=== PATIENT | female | born 1985 | race Caucasian/White ===

== ENCOUNTER 2018-04-18 14:08 | Emergency (ER) | payer MEDICAID ==
[~2018-04-18] VITALS: Ht 167.6 cm; Wt 81.3 kg
[~2018-04-18 14:08] MED LIST: ALBU6.7H INH; ALBU8.5H8 IH; DIPH-186 PO; FAMO20TA44 PO; HYDR-569 PO; METH4TAB PO; NO HOME MEDS; OMEP20CA10 PO; ONDA4TAB12 PO; ONDA8TAB13 PO; SUCR1ORA2 PO
[2018-04-18 15:06] VITALS: BP 136/88
[2018-04-18] MEDS ORDERED: IBUP-1984 PO (16:01)
[2018-04-18] MEDS ORDERED: HYDR-565 PO (16:01)
[2018-04-18] MEDS ORDERED: ORPH100T2 PO (16:01)
== END 2018-04-18 16:18 | disposition home or self-care (01) ==
LOC: ER 14:08
DX: M54.5 Low back pain (principal); F12.90 Cannabis use, unspecified, uncomplicated; Z79.899 Other long term (current) drug therapy
CPT/HCPCS: 99283

== ENCOUNTER 2023-01-14 07:03 | Inpatient (IN) | payer MEDICAID ==
[2023-01-11 11:43] LABS: CLARITY,URINE CLEAR (Clear); COLOR,URINE YELLOW (Yellow); GLUCOSE, URINE NEGATIVE (Neg); KETONES,URINE NEGATIVE (Neg); LEUKOCYTE ESTERASE ,URINE NEGATIVE (Neg); NITRITES, URINE NEGATIVE (Neg); OCCULT BLOOD,URINE NEGATIVE (Neg); PH,URINE 7.5 (4.8-8.0); PROTEIN,URINE NEGATIVE (Neg); UA COLLECTION TYPE CLN CATCH MIDSTREAM; UROBILINOGEN,URINE 0.2 E.U/dL (0.2-1.0)
[2023-01-11 11:44] LABS: PRE OP PROTIME 10.7 SECONDS (9.0-12.0)
[2023-01-11 11:48] LABS: ALBUMIN 4.1 G/DL (3.4-5.0); ALBUMIN/GLOBULIN RATIO 1.2 (1.1-1.5); ALKALINE PHOSPHATASE 58 IU/L (46-116); BLOOD UREA NITROGEN 5 MG/DL (7-18); BUN/CREATININE RATIO 7.1 (6.6-38.0); CHLORIDE 106 MMOL/L (99-107); PRE OP ALT 23 U/L (30-65); PRE OP ANION GAP 6 (8-16); PRE OP AST 16 U/L (10-37); PRE OP BILIRUB, TOTAL 0.2 MG/DL (0.0-1.0); PRE OP GLUCOSE 112 MG/DL (70-104); PRE OP POTASSIUM 3.8 MMOL/L (3.4-5.1); PRE OP SODIUM 140 MMOL/L (135-145); TOTAL CARBON DIOXIDE 28.3 MMOL/L (24-32); TOTAL PROTEIN 7.4 G/DL (6.4-8.2); eGFR > 90 ML/MIN
[2023-01-11 12:42] LABS: BASOPHILS % (AUTO) 0.9 % (0-1); EOSINOPHILS # (AUTO) 0.1 X10'3 (0-0.9); EOSINOPHILS % (AUTO) 2.2 % (0-6); LYMPHOCYTES # (AUTO) 1.2 X10'3 (1.1-4.8); LYMPHOCYTES % (AUTO) 28.6 % (21-51); MEAN CORPUSCULAR HEMOGLOBIN 30.8 PG (27.0-31.0); MEAN CORPUSCULAR HGB CONC 32.7 g/dL (33.0-36.5); MEAN CORPUSCULAR VOLUME 94.2 FL (78-98); MEAN PLATELET VOLUME 8.6 FL (7.4-10.4); MONOCYTES # (AUTO) 0.3 X10'3 (0-0.9); MONOCYTES % (AUTO) 6.9 % (2-12); NEUTROPHILS # (AUTO) 2.7 X10'3 (1.8-7.7); NEUTROPHILS % (AUTO) 61.4 % (42-75); PRE OP HEMATOCRIT 43.2 % (35.0-45.0); PRE OP HEMOGLOBIN 14.1 g/dL (12.0-16.0); PRE OP PLATELET COUNT 264 X10'3 (140-440); RED BLOOD COUNT 4.58 X10'6 (4.20-5.60); RED CELL DISTRIBUTION WIDTH 13.5 % (11.5-14.5)
[~2023-01-14] VITALS: Ht 167.6 cm; Wt 81.5 kg
[2023-01-14] VITALS (24 sets, daily range): BP systolic 89–152; BP diastolic 49–88
[~2023-01-14 07:03] MED LIST changes: -ALBU6.7H INH; -ALBU8.5H8 IH; -DIPH-186 PO; -FAMO20TA44 PO; -HYDR-569 PO; +IBUP-1986 PO; -METH4TAB PO; -NO HOME MEDS; -OMEP20CA10 PO; -ONDA4TAB12 PO; -ONDA8TAB13 PO; -SUCR1ORA2 PO; +cefazolin 2gm/D5W 100mL 100 ML IV ONE; +famotidine 20mg tablet PO ONE; +ringers solution, lacted 1,000 ML IV SCH
[2023-01-14] MEDS ORDERED: midazolam 1 mg/ML 2ml injection ONE (12:32)
[2023-01-14] MEDS ORDERED: BUPIVAcaine/PF 2.5 mg/ml (0.25%) 30ml vial ONE (12:33)
[2023-01-14] MEDS ORDERED: sevoflurane 250ml liquid IH ONE (12:40)
[2023-01-14] MEDS ORDERED: meperidine/PF 25mg/ml syringe IV PRN ×3 (12:40)
[2023-01-14] MEDS ORDERED: morphine 2 MG/ML inj. syringe IV PRN ×2 (12:40→14:55)
[2023-01-14] MEDS ORDERED: labetalol 20mg/4ml (5mg/ml) syringe IV PRN (12:40)
[2023-01-14] MEDS ORDERED: ringers solution, lacted 1,000 ML IV SCH (12:40)
[2023-01-14] MEDS ORDERED: hydrALAZINE 20mg/ml inj. IV PRN (12:40)
[2023-01-14] MEDS ORDERED: dexamethasone sod phosphate 4mg/ml inj. ONE (12:40)
[2023-01-14] MEDS ORDERED: acetaminophen 1,000mg/100ml IV 100 ML IV PRN (12:40)
[2023-01-14] MEDS ORDERED: proCHLORperazine 10 MG/2 ml inj IV PRN (12:40)
[2023-01-14] MEDS ORDERED: ondansetron/PF 4mg/2ml inj IV PRN (12:40)
[2023-01-14] MEDS ORDERED: fentaNYL /PF 50mcg/ml 5ml ampule ONE (14:08)
[2023-01-14] MEDS ORDERED: cloNIDine hcl/PF 100mcg/ml inj ONE (14:41)
[2023-01-14] MEDS ORDERED: propofol inj 20 ML IV ONE (14:46)
[2023-01-14] MEDS ORDERED: 0.9 % SODIUM CHLORIDE 10 ML VIAL ONE (14:46)
[2023-01-14] MEDS ORDERED: ondansetron/PF 4mg/2ml inj ONE (14:46)
[2023-01-14] MEDS ORDERED: ePHEDrine 50MG/ML INJ. ONE (14:46)
[2023-01-14] MEDS ORDERED: LIDOcaine 2% (20mg/ml) 5ml vial ONE (14:46)
[2023-01-14] MEDS ORDERED: rocuronium 10mg/ml inj IV ONE ×2 (14:46)
[2023-01-14] MEDS ORDERED: LIDOcaine 1% (10mg/ml) 2ml vial ONE (14:46)
[2023-01-14] MEDS ORDERED: glycopyrrolate 0.2mg/ml inj ONE (14:55)
[2023-01-14] MEDS ORDERED: albuterol 2.5 MG/3 ML nebule NEB PRN (14:55)
[2023-01-14] MEDS ORDERED: neostigmine methylsulfate 1 MG/ML 10ml vial ONE (14:55)
[2023-01-14] MEDS ORDERED: metoclopramide 5 mg/ml inj IV PRN (14:55)
[2023-01-14] MEDS ORDERED: morphine 4 MG/ML inj SYRINge IV PRN (14:55)
[2023-01-14] MEDS ORDERED: sugammadex 200mg/2ml injection IV ONE (14:58)
[2023-01-14] MEDS: albuterol 2.5 MG/3 ML nebule NEB SCH ×3 (15:00→23:26)
--- NOTE | 2023-01-14 15:09 | NUR ---
Received from OR via HOSPITAL BED, accompanied by Anesthesiologist and report given by NHUNG Anesthesiologist. PATIENT WAKING UP, SEVERE LEFT LATERAL CHEST PAIN-MEDICATED, V/S WNL, 20G TO LEFT HAND, ART LINE LEFT RADIAL C/D/I, SCD ON, NEURO CHECKS WNL , PERRLA EYES, EQUAL STRENGTHS BUE BLE , TONGUE MIDLINE, CHEST TUBE ATRIUM CONNECTED TO 20 MMHG SUCTION ON LEFT LATERAL CHEST C/D/I NO OUTPUT AT THIS TIME. STEPHEN CATHETER DRAINING CLEAR YELLOW URINE. Addendum: 01/14/23 at 1608 by Bright Fitzgerald RN Amended: Links added.
[2023-01-14] MEDS: morphine 4 MG/ML inj SYRINge IV PRN ×2 (15:13→15:27)
[2023-01-14] MEDS ORDERED: ketorolac trometh. 30mg/ml inj. IV ONE (15:15)
[2023-01-14] MEDS ORDERED: HYDROmorph/NS 0.2 mg/ml PCA 100 ML IV SCH (15:20)
[2023-01-14] MEDS ORDERED: naloxone 0.4 mg/ml inj IV PRN (15:20)
[2023-01-14 15:26] LABS: ABG BASE EXCESS -4.3 mmol/L (-2.0-2.0); ABG HCO3 18.2 mmol/L (22.0-26.0); ABG PCO2 (T) 27.1 mmHg (32.0-45.0); FCOHb 0.1 % (0.0-3.9); FMetHb 0.3 % (0.0-1.5); FO2Hb 97.6 % (94-97); TOTAL HEMOGLOBIN 14.3 G/dl (12.0-16.0)
[2023-01-14] MEDS: HYDROmorph/NS 0.2 mg/ml PCA 100 ML IV SCH ×4 (15:48→23:00)
--- NOTE | 2023-01-14 17:58 | NUR ---
Patient in room PAS IN 900. I have received report from Bright GILES and had the opportunity to ask questions and assume patient care.
--- NOTE | 2023-01-14 18:19 | NUR ---
PATIENT HAS MET ALL CRITERIA FOR TRANSFER TO THE SURGICAL FLOOR. VSS. DRESSINGS INTACT. BED LOW, CALL LIGHT PRESENT AND 2 RAILS UP. RN PRESENT TO ACCEPT CARE OF PATIENT AND REPORT HAS BEEN CALLED. ALL QUESTIONS ANSWERED TO ACCEPTING RN. Addendum: 01/14/23 at 1825 by Bright Fitzgerald RN Amended: Links added.
--- NOTE | 2023-01-14 18:20 | NUR ---
Patient arrived to floor via hospital bed assisted by Bright GILES. VS obtained and stable, patient AOx4 orientation provided to floor and call light, patient verbalized understanding. Family at bedside. Patient c/o nausea, PRN administered.
--- NOTE | 2023-01-14 18:40 | NUR ---
Problems reprioritized. Patient report given, questions answered & plan of care reviewed with Sarahi GILES.
[2023-01-14] MEDS: ketorolac tromethamine 15mg/ml inj. IV SCH (21:13)
[2023-01-14] MEDS: gabapentin 300mg capsule PO SCH (21:13)
[2023-01-14] MEDS: potassium Cl 20mEq in D5-NS 1,000 ML IV SCH (22:09)
[2023-01-15] MEDS: HYDROmorph/NS 0.2 mg/ml PCA 100 ML IV SCH ×5 (01:00→09:00)
[2023-01-15] MEDS: ketorolac tromethamine 15mg/ml inj. IV SCH ×3 (02:43→14:19)
[2023-01-15] MEDS: albuterol 2.5 MG/3 ML nebule NEB SCH ×5 (03:23→20:20)
[2023-01-15] MEDS: ceFAZolin inj. 1,000 MG in dextrose 5%-water 50ml 50 ML IV SCH ×4 (03:23→10:19)
[2023-01-15 04:00] VITALS: BP 96/53
[2023-01-15] MEDS: potassium Cl 20mEq in D5-NS 1,000 ML IV SCH ×2 (04:13→10:24)
[2023-01-15 05:30] VITALS: BP 95/53
[2023-01-15] MEDS: ondansetron/PF 4mg/2ml inj IV PRN ×2 (06:50→14:56)
--- NOTE | 2023-01-15 07:00 | NUR ---
Patient in room [facility] 358. I have received report from TISHA Braxton and had the opportunity to ask questions and assume patient care.
[2023-01-15 08:14] LABS: ALANINE AMINOTRANSFERASE 19 U/L (12-78); ALBUMIN 3.3 G/DL (3.4-5.0); ALBUMIN/GLOBULIN RATIO 1.1 (1.1-1.5); ALKALINE PHOSPHATASE 44 IU/L (46-116); ANION GAP 8 (8-16); ASPARTATE AMINO TRANSFERASE 24 U/L (10-37); BILIRUBIN,TOTAL 0.3 MG/DL (0.1-1.0); BLOOD UREA NITROGEN 7 MG/DL (7-18); BUN/CREATININE RATIO 9.9 (6.6-38.0); CALCIUM 8.2 MG/DL (8.5-10.1); CHLORIDE 105 MMOL/L (99-107); CREATININE 0.71 MG/DL (0.40-0.90); GLUCOSE 139 MG/DL (70-104); POTASSIUM 3.8 MMOL/L (3.5-5.1); SODIUM 136 MMOL/L (135-145); TOTAL CARBON DIOXIDE 22.7 MMOL/L (24-32); TOTAL PROTEIN 6.2 G/DL (6.4-8.2); eGFR > 90 ML/MIN
[2023-01-15 08:16] LABS: BASOPHILS % (AUTO) 0.1 % (0-1); EOSINOPHILS % (AUTO) 0 % (0-6); HEMATOCRIT 37.2 % (35.0-45.0); HEMOGLOBIN 12.2 g/dl (12.0-16.0); LYMPHOCYTES # (AUTO) 0.5 X10'3 (1.1-4.8); MEAN CORPUSCULAR HEMOGLOBIN 30.7 PG (27.0-31.0); MEAN CORPUSCULAR HGB CONC 32.8 g/dL (33.0-36.5); MEAN CORPUSCULAR VOLUME 93.4 FL (78-98); MEAN PLATELET VOLUME 8.2 FL (7.4-10.4); MONOCYTES # (AUTO) 0.6 X10'3 (0-0.9); MONOCYTES % (AUTO) 4.6 % (2-12); NEUTROPHILS # (AUTO) 11.9 X10'3 (1.8-7.7); NEUTROPHILS % (AUTO) 91.3 % (42-75); PLATELET COUNT 221 X10'3 (140-440); RED BLOOD COUNT 3.98 X10'6 (4.20-5.60); RED CELL DISTRIBUTION WIDTH 13.7 % (11.5-14.5)
[2023-01-15 10:00] VITALS: BP 108/59
[2023-01-15] MEDS: gabapentin 300mg capsule PO SCH ×2 (10:18→20:49)
[2023-01-15] MEDS ORDERED: PCA WASTE DOCUMENTATION 1 MG ML MC ONE (11:40)
[2023-01-15] MEDS: HYDROcodone/acetaminophen 10/325mg tab PO PRN ×3 (12:07→20:48)
[2023-01-15 18:00] VITALS: BP 115/59
--- NOTE | 2023-01-15 18:15 | NUR ---
Problems reprioritized. Patient report given, questions answered & plan of care reviewed with TISHA Carr.
--- NOTE | 2023-01-15 18:51 | NUR ---
Patient in room [facility] 358. I have received report from TISHA Carr and had the opportunity to ask questions and assume patient care.
[2023-01-15] MEDS: HYDROmorphone inj. 0.5 MG/0.5 ML DISP.SYRIN IV PRN (18:59)
[2023-01-15 22:00] VITALS: BP 111/60
[2023-01-16] MEDS: albuterol 2.5 MG/3 ML nebule NEB SCH ×4 (00:03→11:00)
[2023-01-16] MEDS: HYDROcodone/acetaminophen 10/325mg tab PO PRN ×3 (03:57→12:13)
[2023-01-16 05:30] VITALS: BP 98/66
[2023-01-16 06:26] LABS: BASOPHILS % (AUTO) 0.5 % (0-1); EOSINOPHILS % (AUTO) 0.6 % (0-6); HEMATOCRIT 35.4 % (35.0-45.0); HEMOGLOBIN 11.9 g/dl (12.0-16.0); LYMPHOCYTES # (AUTO) 2.1 X10'3 (1.1-4.8); LYMPHOCYTES % (AUTO) 34.5 % (21-51); MEAN CORPUSCULAR HEMOGLOBIN 31.1 PG (27.0-31.0); MEAN CORPUSCULAR HGB CONC 33.5 g/dL (33.0-36.5); MEAN CORPUSCULAR VOLUME 92.9 FL (78-98); MEAN PLATELET VOLUME 8.2 FL (7.4-10.4); MONOCYTES # (AUTO) 0.4 X10'3 (0-0.9); MONOCYTES % (AUTO) 7.2 % (2-12); NEUTROPHILS # (AUTO) 3.4 X10'3 (1.8-7.7); NEUTROPHILS % (AUTO) 57.2 % (42-75); PLATELET COUNT 205 X10'3 (140-440); RED BLOOD COUNT 3.81 X10'6 (4.20-5.60); RED CELL DISTRIBUTION WIDTH 13.8 % (11.5-14.5)
--- NOTE | 2023-01-16 06:30 | NUR ---
Patient in room [facility] 358. I have received report from TISHA Lopez and had the opportunity to ask questions and assume patient care.
[2023-01-16 06:37] LABS: ALANINE AMINOTRANSFERASE 18 U/L (12-78); ALBUMIN 3.2 G/DL (3.4-5.0); ALBUMIN/GLOBULIN RATIO 1.1 (1.1-1.5); ALKALINE PHOSPHATASE 43 IU/L (46-116); ANION GAP 8 (8-16); ASPARTATE AMINO TRANSFERASE 14 U/L (10-37); BILIRUBIN,TOTAL 0.3 MG/DL (0.1-1.0); BLOOD UREA NITROGEN 5 MG/DL (7-18); BUN/CREATININE RATIO 7.8 (6.6-38.0); CALCIUM 8.3 MG/DL (8.5-10.1); CHLORIDE 109 MMOL/L (99-107); CREATININE 0.64 MG/DL (0.40-0.90); GLUCOSE 93 MG/DL (70-104); POTASSIUM 4.1 MMOL/L (3.5-5.1); SODIUM 142 MMOL/L (135-145); TOTAL PROTEIN 6.1 G/DL (6.4-8.2); eGFR > 90 ML/MIN
--- NOTE | 2023-01-16 07:03 | NUR ---
Problems reprioritized. Patient report given, questions answered & plan of care reviewed with TISHA Blount.
[2023-01-16] MEDS ORDERED: magnesium hydroxide 30ml (MOM) UD suspension PO PRN (07:25)
[2023-01-16] MEDS: gabapentin 300mg capsule PO SCH (08:04)
[2023-01-16 10:00] VITALS: BP 103/60
[2023-01-16] MEDS: HYDROmorphone inj. 0.5 MG/0.5 ML DISP.SYRIN IV PRN (10:34)
[2023-01-16] MEDS: ondansetron/PF 4mg/2ml inj IV PRN (12:16)
[2023-01-16] MEDS ORDERED: ONDA4TAB12 PO (12:37)
--- NOTE | 2023-01-16 13:45 | NUR ---
DC inst provided to pt. IV DC'd, tip intact. All belongings sent w/pt. Pt ambulated to vehicle.
== END 2023-01-16 13:45 | disposition home or self-care (01) | DRG 950 ==
LOC: PAS IN 07:03 → SUR 3N 18:00
PROVIDERS: ADMIT Surgery; ATTEND Surgery
PROC: 0WBC4ZZ Excision of Mediastinum, Percutaneous Endoscopic Approach (ICD-10-PCS; 2023-01-14)
PROC: 8E0W4CZ Robotic Assisted Procedure of Trunk Region, Percutaneous Endoscopic Approach (ICD-10-PCS; 2023-01-14)
PROC: 07BM4ZZ Excision of Thymus, Percutaneous Endoscopic Approach (ICD-10-PCS; principal; 2023-01-14 12:40)
DX: R22.2 Localized swelling, mass and lump, trunk (principal)
CPT/HCPCS: 36415; 36600; 71045; 71046; 80053; 81003; 82803; 82948; 85018; 85025; 85610; 85730; 86885; 86900; 86901; 87081; 93005; 94640; 94760; 97116; 97161; 97530; A4618; A5200; A6258; A6449; A7000; A7048; C1758; G0378; J0131; J0690; J0735; J1100; J1170; J1885; J2175; J2250; J2270; J2405; J2704; J2710; J2765; J3010; J3480; J3490; J7060; J7120